=== PATIENT | female | born 1990 | race Caucasian/White ===

== ENCOUNTER 2019-07-16 12:25 | Emergency (ER) | payer BC ==
--- NOTE | 2019-07-16 13:12 | EDM.PDOC ---
ED HPI GENERAL MEDICAL PROBLEM - General Chief Complaint: Skin Complaint Stated Complaint: MASS;RT SIDE Time Seen by Provider: 07/16/19 13:01 Source of Information: Reports: Patient History Limitations: Reports: No Limitations - History of Present Illness INITIAL COMMENTS - FREE TEXT/NARRATIVE: HISTORY AND PHYSICAL: History of present illness: Patient is a 29 year old female who presents to the ED with c/o of breast pain and redness 6 weeks . Patient states she has been and has not had any complications post delivery. She noticed today she had right lateral breast pain, warmth, and discomfort with breast feeding. She states she tried applying head, taking OTC mediations, and feeding of that side but was concerned she may have mastitis. Today she had a low grade fever and felt she needed to be evaluated. OBGYN: Dr Welsh at [facility]. Review of systems: As per history of present illness and below otherwise all systems reviewed and negative. Past medical history: As per history of present illness and as reviewed below otherwise noncontributory. Surgical history: As per history of present illness and as reviewed below otherwise noncontributory. Social history: See social history for further information Family history: As per history of present illness and as reviewed below otherwise noncontributory. Physical exam: General: Well-developed and well-nourished 29-year-old female. Alert and oriented. Nontoxic appearing and in no acute distress. HEENT: Atraumatic, normocephalic, pupils equal and reactive bilaterally, negative for conjunctival pallor or scleral icterus, mucous membranes moist, trachea midline. No drooling or trismus noted. No meningeal signs. No hot potato voice noted. Lungs: Clear to auscultation, breath sounds equal bilaterally, chest nontender. Heart: S1S2, regular rate and rhythm without overt murmur Breast: The right breast at the 10 to 7 o'clock position is tender to palpation with some mild erythema. Not localized, diffuse and presentation. She has no dimpling or change in skin appearance. No nipple discharge. The skin is warm to touch. Abdomen: Soft, nondistended, nontender. Negative for masses or hepatosplenomegaly. Negative for costovertebral tenderness. Pelvis: Stable nontender. Skin: Intact, warm, dry. No lesions or rashes noted. Extremities: Atraumatic, moves all extremities per self without difficulty or deficits, negative for cords or calf pain. Neurovascular unremarkable. Neuro: Awake, alert, oriented. Cranial nerves II through XII unremarkable. Cerebellum unremarkable. Motor and sensory unremarkable throughout. Exam nonfocal. Notes: Patient states that she does have an appointment on Wednesday to see her BILINGUAL TEACHER AIDE as she does have an ultrasound scheduled. She states they're doing the ultrasound as she continued to have vaginal bleeding post delievery, and they were concerned of some retained products. She states that her bleeding has resolved and she was unsure whether or not to keep that appointment as she had not yet touched base with her BILINGUAL TEACHER AIDE. Her abdominal exam is unremarkable. She denies any recent fevers other than the last 24 hours with the breast concern. Encouraged her to keep her appointment as it would like her to have her breast reevaluated. She is agreeable to plan of care. Supportive care measures were reviewed and discussed. Voices understanding and is agreeable to plan of care. Denies any further questions or concerns at this time. Diagnostics: None Therapeutics: None Prescription: Keflex Impression: Mastitis, right Plan: 1. Continue to monitor the area for signs of improvement. Take the antibiotic as directed. Is safe in breast feeding, may cause minimal diarrhea in infant. 2. Continue alternating Tylenol and ibuprofen for pain and fever management. 3. Call Wednesday to inform Dr Welsh of ER visit and schedule re-evaluation. 4. Return to ED as needed and as discussed. Definitive disposition and diagnosis as appropriate pending reevaluation and review of above. right breast Pain Score (Numeric/FACES): 8 - Related Data Allergies Allergy/AdvReac Type Severity Reaction Status Date / Time No Known Allergies Allergy Verified 07/16/19 13:06 Home Meds: Home Meds Vit No.130/Iron/FA [ Tablet] 1 tab PO DAILY 02/03/19 [History] cephALEXin [Keflex] 500 mg PO Q8H 5 Days #15 cap 07/16/19 [Rx] Past Medical History - Past Health History Medical/Surgical History: Denies Medical/Surgical History BILINGUAL TEACHER AIDE History: Reports: Social & Family History - Caffeine Use Caffeine Use: Reports: Coffee ED ROS GENERAL - Review of Systems Review Of Systems: Comprehensive ROS is negative, except as noted in HPI. ED EXAM, SKIN/RASH Exam: See Below (See dictation) Course - Vital Signs Last Recorded V/S: Last Vital Signs Temp 99.3 F 07/16/19 13:05 Pulse 108 H 07/16/19 13:22 Resp 16 07/16/19 13:22 BP 109/76 07/16/19 13:22 Pulse Ox 98 07/16/19 13:22 Departure - Departure Time of Disposition: 13:11 Disposition: Home, Self-Care 01 Clinical Impression: Mastitis - Discharge Information Prescriptions: cephALEXin [Keflex] 500 mg PO Q8H 5 Days #15 cap Instructions: Mastitis, [id number] Referrals: PCP,None [Primary Care Provider] - Forms: ED Department Discharge Additional Instructions: The following information is given to patients seen in the emergency department who are being discharged to home. This information is to outline your options for follow-up care. We provide all patients seen in our emergency department with a follow-up referral. The need for follow-up, as well as the timing and circumstances, are variable depending upon the specifics of your emergency department visit. If you don't have a primary care physician on staff, we will provide you with a referral. We always advise you to contact your personal physician following an emergency department visit to inform them of the circumstance of the visit and for follow-up with them and/or the need for any referrals to a consulting specialist. The emergency department will also refer you to a specialist when appropriate. This referral assures that you have the opportunity for follow-up care with a specialist. All of these measure are taken in an effort to provide you with optimal care, which includes your follow-up. Under all circumstances we always encourage you to contact your private physician who remains a resource for coordinating your care. When calling for follow-up care, please make the office aware that this follow-up is from your recent emergency room visit. If for any reason you are refused follow-up, please contact the [facility] Emergency Department at and asked to speak to the emergency department charge nurse. [facility] [address] [place] [id number] [address] 1. Continue to monitor the area for signs of improvement. Take the antibiotic as directed. Is safe in breast feeding, may cause minimal diarrhea in infant. 2. Continue alternating Tylenol and ibuprofen for pain and fever management. 3. Call Wednesday to inform Dr Welsh of ER visit and schedule re-evaluation. 4. Return to ED as needed and as discussed.
== END 2019-07-16 13:39 | disposition home or self-care (01) ==
LOC: MW.ED 12:25
DX: O91.22 Nonpurulent mastitis associated with the puerperium (principal)
CPT/HCPCS: 99283

== ENCOUNTER 2020-06-27 10:29 | Day surgery (SDC) | payer BC ==
[~2020-06-27 10:29] MED LIST: Lactated Ringers 1,000 ML IV SCH; Sodium Chloride 0.9% 10 ML SDV IV PRN; Sodium Chloride 0.9% 10 ML Syringe FLUSH PRN; Sodium Chloride 0.9% 2.5 ML Syringe FLUSH PRN
[2020-06-27] MEDS ORDERED: Propofol 200 MG/20 ML SDV ONE ×2 (10:41→12:58)
[2020-06-27] MEDS ORDERED: Midazolam 1 MG/ML 2 ML SDV ONE (10:41)
--- NOTE | 2020-06-27 10:59 | PCM.PREANE ---
Preanesthetic Assessment - Anesthesia/Transfusion/Family Hx Anesthesia History: Prior Anesthesia Without Reaction Other Type of Anesthesia Reaction Comment: "my mother woke up during her surgery" "I have had no problems" Family History of Anesthesia Reaction: No Transfusion History: No Prior Transfusion(s) - Review of Systems General: No Symptoms Pulmonary: No Symptoms Cardiovascular: No Symptoms Neurological: No Symptoms Other: Reports: None - Physical Assessment NPO Status Date: 06/26/20 Height: 5 ft 6 in Weight: 57.153 kg ASA Class: 2 Mental Status: Alert & Oriented x3 Airway Class: Mallampati = 2 Dentition: Reports: Normal Dentition ROM/Head Extension: Full Lungs: Clear to Auscultation, Normal Respiratory Effort Cardiovascular: Regular Rate, Regular Rhythm - Allergies Allergies/Adverse Reactions: Allergies Allergy/AdvReac Type Severity Reaction Status Date / Time No Known Allergies Allergy Verified 06/21/20 08:22 - Blood Blood Available: No - Anesthesia Plan Pre-Op Medication Ordered: None - Acknowledgements Anesthesia Type Planned: General Anesthesia Pt an Appropriate Candidate for the Planned Anesthesia: Yes Alternatives and Risks of Anesthesia Discussed w Pt/Guardian: Yes Pt/Guardian Understands and Agrees with Anesthesia Plan: Yes Additional Comments: PMH: IBS PLAN: TIVA PreAnesthesia Questionnaire - Past Health History Medical/Surgical History: Denies Medical/Surgical History HEENT History: Reports: None Cardiovascular History: Reports: None Respiratory History: Reports: None Gastrointestinal History: Reports: Chronic Constipation Genitourinary History: Reports: None CPA TAX History: Reports: Musculoskeletal History: Reports: Fracture Neurological History: Reports: Migraines Psychiatric History: Reports: None Endocrine/Metabolic History: Reports: None Hematologic History: Reports: None Immunologic History: Reports: None Oncologic (Cancer) History: Reports: None Dermatologic History: Reports: None - Infectious Disease History Infectious Disease History: Reports: None - Past Surgical History Other Musculoskeletal Surgeries/Procedures:: arm sx - SUBSTANCE USE Tobacco Use Status *Q: Never Tobacco User - HOME MEDS Home Medications: Home Meds Vit No.130/Iron/Folic [ Tablet] 1 tab PO DAILY 02/03/19 [History] - CURRENT (IN HOUSE) MEDS Current Meds: Current Medications Lactated Ringer's (Ringers, Lactated) 1,000 mls @ 125 mls/hr IV ASDIRECTED CHEL Sodium Chloride (Saline Flush) 10 ml FLUSH ASDIRECTED PRN PRN Reason: Keep Vein Open Sodium Chloride (Saline Flush) 2.5 ml FLUSH ASDIRECTED PRN PRN Reason: Keep Vein Open Sodium Chloride (Saline Flush) 10 ml FLUSH ASDIRECTED PRN PRN Reason: Keep Vein Open Sodium Chloride (Saline Flush) 2.5 ml FLUSH ASDIRECTED PRN PRN Reason: Keep Vein Open Sodium Chloride (Normal Saline) 10 ml IV ASDIRECTED PRN PRN Reason: IV Use Discontinued Medications Midazolam HCl (Versed 1 Mg/Ml) Confirm Administered Dose 2 mg .ROUTE .STK-MED ONE Stop: 06/27/20 10:42 Propofol (Diprivan 20 Ml) Confirm Administered Dose 400 mg .ROUTE .STK-MED ONE Stop: 06/27/20 10:42
--- NOTE | 2020-06-27 13:17 | PCM.OPNOTE ---
- General Post-Op/Procedure Note Date of Surgery/Procedure: 06/27/20 Operative Procedure(s): Diagnostic colonoscopy Findings: Normal appearing colonoscopy Pre Op Diagnosis: Change in bowel habits Post-Op Diagnosis: IBS Anesthesia Technique: MAC Primary Surgeon: Christal Ardon Condition: Good
--- NOTE | 2020-06-27 13:47 | PCM.POSTAN ---
POST ANESTHESIA ASSESSMENT - MENTAL STATUS Mental Status: Alert, Oriented - VITAL SIGNS Vital Signs: Last Vital Signs Temp 36.6 C 06/27/20 11:03 Pulse 84 06/27/20 13:41 Resp 18 06/27/20 13:41 BP 100/52 L 06/27/20 13:41 Pulse Ox 98 06/27/20 13:41 - RESPIRATORY Respiratory Status: Respiratory Rate WNL, Airway Patent, O2 Saturation Stable - CARDIOVASCULAR CV Status: Pulse Rate WNL, Blood Pressure Stable - GASTROINTESTINAL GI Status: No Symptoms - POST OP HYDRATION Hydration Status: Adequate & Stable
--- NOTE | 2020-06-27 13:50 | OR ---
SURGEON: CHRISTAL ARDON MD DATE OF PROCEDURE: 06/27/2020 PREOPERATIVE DIAGNOSIS: Change in bowel habits. POSTOPERATIVE DIAGNOSIS: Irritable bowel syndrome. PROCEDURE PERFORMED: Diagnostic colonoscopy with biopsies. PRIMARY SURGEON: Christal Ardon MD ANESTHESIA: MAC. INSTRUMENT USED: Olympus colonoscope. EXTENT OF EXAM: To the cecum. PREPARATION: Good. LIMITATIONS: None. INDICATIONS FOR EXAMINATION: The patient is a 30-year-old female with a previous diagnosis of irritable bowel syndrome. However, recently she has had more dramatic changes in her bowel habits that are unusual for her. The decision was made to proceed with a diagnostic colonoscopy. The patient and I discussed the procedure, expected perioperative course, and the risks including bleeding, infection, or damage to surrounding structures including perforation. The patient verbalized understanding and wishes to proceed. PROCEDURE IN DETAIL: The patient was brought to the endoscopy suite and placed in the left lateral decubitus position. A time-out was completed verifying the patient's name, age, date of , allergies, and procedure to be performed. Monitored anesthesia care was induced and continuous oxygen was provided via nasal cannula throughout the procedure. After adequate sedation was achieved, a digital rectal exam was performed. This exam was within normal limits. A well-lubricated colonoscope was inserted in the rectum and advanced under direct visualization to the level of the cecum. The cecum was identified by both visual and anatomic landmarks. A photograph was taken of the cecal cap. However, I was unable to retroflex the scope within the cecum due to looping of the scope more proximally. The scope was then fully withdrawn while examining the color, texture, anatomy, and integrity of the mucosa from the cecum to the anal canal. The findings were consistent with normal colonic mucosa. Biopsies were taken in the ascending colon, the transverse colon, the sigmoid colon, and the rectum and sent for histologic review. The scope was brought into the rectum and retroflexed to allow visualization of the anal canal opening. This appeared normal and a photograph was taken. The scope was then straightened out and fully withdrawn. The cecum to anus time was 6 minutes. The patient tolerated the procedure well and was transferred to the PACU in stable condition. ENDOSCOPIC DIAGNOSIS: Irritable bowel syndrome. RECOMMENDATIONS: Follow up in clinic in 2 weeks to discuss biopsy results and the next steps and management. TRUDI / AMALIA /[id number]
--- NOTE | 2020-06-27 13:57 | PCM48HPAN ---
Post Anesthesia Note - EVALUATION WITHIN 48HRS OF ANESTHETIC Vital Signs in Normal Range: Yes Patient Participated in Evaluation: Yes Respiratory Function Stable: Yes Airway Patent: Yes Cardiovascular Function Stable: Yes Hydration Status Stable: Yes Pain Control Satisfactory: Yes Nausea and Vomiting Control Satisfactory: Yes Mental Status Recovered: Yes Vital Signs: Last Vital Signs Temp 36.6 C 06/27/20 11:03 Pulse 84 06/27/20 13:41 Resp 18 06/27/20 13:41 BP 100/52 L 06/27/20 13:41 Pulse Ox 98 06/27/20 13:41 - COMMENTS/OBSERVATIONS Free Text/Narrative:: Sitting up eating and denies complaints. States she wants to go home soon.
== END 2020-06-27 14:15 | disposition home or self-care (01) ==
LOC: MW.SDS 10:29
PROVIDERS: ATTEND Surgery
DX: K58.9 Irritable bowel syndrome, unspecified (principal); G43.909 Migraine, unspecified, not intractable, without status migrainosus; Z79.899 Other long term (current) drug therapy; Z98.890 Other specified postprocedural states; Z90.89 Acquired absence of other organs
CPT/HCPCS: 45380; 81025; J2250; J2704; J7120

== ENCOUNTER 2020-07-11 06:31 | Day surgery (SDC) | payer BC ==
[~2020-07-11 06:31] MED LIST changes: +ceFAZolin 1 GM in Premix Bag 1 BAG IV ONE
[2020-07-11] MEDS ORDERED: Propofol 200 MG/20 ML SDV ONE (07:00)
[2020-07-11] MEDS ORDERED: Glycopyrrolate 0.2 MG/ML SDV ONE (07:01)
[2020-07-11] MEDS ORDERED: fentaNYL 250 MCG/5 ML SDV ONE (07:01)
[2020-07-11] MEDS ORDERED: Midazolam 1 MG/ML 2 ML SDV ONE (07:01)
[2020-07-11] MEDS ORDERED: Lidocaine 2% 5 ML SDV ONE (07:01)
[2020-07-11] MEDS ORDERED: Rocuronium Bromide 50 MG/5 ML Syringe ONE (07:01)
[2020-07-11] MEDS ORDERED: Ketorolac 30 MG/ML SDV ONE (07:01)
[2020-07-11] MEDS ORDERED: Ondansetron 4 MG/2 ML SDV ONE (07:01)
--- NOTE | 2020-07-11 07:01 | PCM.PREANE ---
Preanesthetic Assessment - Anesthesia/Transfusion/Family Hx Anesthesia History: Prior Anesthesia Without Reaction Other Type of Anesthesia Reaction Comment: "my mother woke up during her surgery" "I have had no problems" Family History of Anesthesia Reaction: No Transfusion History: No Prior Transfusion(s) Intubation History: Unknown - Review of Systems General: No Symptoms Pulmonary: No Symptoms Cardiovascular: No Symptoms Gastrointestinal: No Symptoms Neurological: No Symptoms Other: Reports: None - Physical Assessment Vital Signs: Last Vital Signs Temp 36.4 C 07/11/20 06:45 Pulse 71 07/11/20 06:45 Resp 16 07/11/20 06:45 BP 104/63 07/11/20 06:45 Pulse Ox 99 07/11/20 06:45 Height: 5 ft 6 in Weight: 57.153 kg ASA Class: 1 Mental Status: Alert & Oriented x3 Airway Class: Mallampati = 1 Dentition: Reports: Normal Dentition Thyro-Mental Finger Breadths: 3 Mouth Opening Finger Breadths: 3 ROM/Head Extension: Full Lungs: Clear to Auscultation, Normal Respiratory Effort Cardiovascular: Regular Rate, Regular Rhythm - Allergies Allergies/Adverse Reactions: Allergies Allergy/AdvReac Type Severity Reaction Status Date / Time No Known Allergies Allergy Verified 07/05/20 09:59 - Blood Blood Available: No - Anesthesia Plan Pre-Op Medication Ordered: None - Acknowledgements Anesthesia Type Planned: General Anesthesia Pt an Appropriate Candidate for the Planned Anesthesia: Yes Alternatives and Risks of Anesthesia Discussed w Pt/Guardian: Yes Pt/Guardian Understands and Agrees with Anesthesia Plan: Yes PreAnesthesia Questionnaire - Past Health History Medical/Surgical History: Denies Medical/Surgical History HEENT History: Reports: None Cardiovascular History: Reports: None Respiratory History: Reports: None Gastrointestinal History: Reports: Chronic Constipation, Irritable Bowel Syndrome Genitourinary History: Reports: None 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: Musculoskeletal History: Reports: Fracture Other Musculoskeletal History: hx fx arm Neurological History: Reports: Migraines Psychiatric History: Reports: None Endocrine/Metabolic History: Reports: None Hematologic History: Reports: None Immunologic History: Reports: None Oncologic (Cancer) History: Reports: None Dermatologic History: Reports: None - Infectious Disease History Infectious Disease History: Reports: None - Past Surgical History Head Surgeries/Procedures: Reports: None HEENT Surgical History: Reports: Tonsillectomy Cardiovascular Surgical History: Reports: None Respiratory Surgical History: Reports: None GI Surgical History: Reports: Appendectomy Female Surgical History: Reports: None Endocrine Surgical History: Reports: None Neurological Surgical History: Reports: None Musculoskeletal Surgical History: Reports: Other (See Below) Other Musculoskeletal Surgeries/Procedures:: arm sx Oncologic Surgical History: Reports: None Dermatological Surgical History: Reports: None - SUBSTANCE USE Tobacco Use Status *Q: Never Tobacco User - HOME MEDS Home Medications: Home Meds Vit No.130/Iron/Folic [ Tablet] 1 tab PO DAILY 02/03/19 [History] - CURRENT (IN HOUSE) MEDS Current Meds: Current Medications Lactated Ringer's (Ringers, Lactated) 1,000 mls @ 125 mls/hr IV ASDIRECTED CHEL Last Admin: 07/11/20 06:50 Dose: 125 mls/hr Documented by: Sodium Chloride (Saline Flush) 10 ml FLUSH ASDIRECTED PRN PRN Reason: Keep Vein Open Sodium Chloride (Saline Flush) 2.5 ml FLUSH ASDIRECTED PRN PRN Reason: Keep Vein Open Sodium Chloride (Normal Saline) 10 ml IV ASDIRECTED PRN PRN Reason: IV Use Discontinued Medications Cefazolin Sodium/Dextrose 1 gm (/ Premix) 50 mls @ 100 mls/hr IV ONETIME ONE Stop: 07/10/20 13:02
[2020-07-11] MEDS ORDERED: Bupivacaine 0.5% 30 ML SDV ONE (07:15)
[2020-07-11] MEDS ORDERED: Acetaminophen 1,000 MG in Premix Bag 1 BAG IV PRN (07:24)
[2020-07-11] MEDS ORDERED: fentaNYL 100 MCG/2 ML SDV IVPUSH PRN (07:24)
[2020-07-11] MEDS ORDERED: Sodium Chloride 0.9% 20 ML ONE (07:31)
[2020-07-11] MEDS ORDERED: ceFAZolin 1 GM Vial ONE (07:31)
[2020-07-11] MEDS ORDERED: Octyl 2-Cyanoacrylate 1 Tube ONE (08:45)
--- NOTE | 2020-07-11 09:10 | PCM.OPNOTE ---
- General Post-Op/Procedure Note Date of Surgery/Procedure: 07/11/20 Operative Procedure(s): Umbilical hernia repair, exploratory laparoscopy Findings: 2mm umbilical hernia, reducible, endometriosis Pre Op Diagnosis: Abdominal pain, umbilical hernia Post-Op Diagnosis: Umbilical hernia, endometriosis Anesthesia Technique: General ET Tube Primary Surgeon: Christal Ardon Fluid Replacement, Intraop: 800 EBL in mLs: 5 Condition: Good
--- NOTE | 2020-07-11 09:14 | PCM.OPNOTE ---
- General Post-Op/Procedure Note Date of Surgery/Procedure: 07/11/20 Operative Procedure(s): Diagnostic laparoscopy Findings: Endometriosis in posterior cul-de-sac. Normal-appearing uterus, ovaries, tubes. Pre Op Diagnosis: Pelvic pain Post-Op Diagnosis: Endometriosis. Pelvic pain Anesthesia Technique: General ET Tube Primary Surgeon: Christal Welsh Pathology: None Fluid Replacement, Intraop: 800 EBL in mLs: 5 Complications: None Condition: Good Free Text/Narrative:: Intake & Output 07/10/20 07/11/20 07/11/20 22:59 06:59 14:59 Intake Total 800 Balance 800
--- NOTE | 2020-07-11 09:41 | PCM.POSTAN ---
POST ANESTHESIA ASSESSMENT - MENTAL STATUS Mental Status: Alert, Oriented - VITAL SIGNS Vital Signs: Last Vital Signs Temp 36.8 C 07/11/20 09:09 Pulse 71 07/11/20 09:25 Resp 14 07/11/20 09:25 BP 99/59 L 07/11/20 09:25 Pulse Ox 98 07/11/20 09:25 - RESPIRATORY Respiratory Status: Respiratory Rate WNL, Airway Patent, O2 Saturation Stable - CARDIOVASCULAR CV Status: Pulse Rate WNL, Blood Pressure Stable - GASTROINTESTINAL GI Status: No Symptoms - PAIN Pain Score: 0 - POST OP HYDRATION Hydration Status: Adequate & Stable - OBSERVATIONS Free Text/Narrative:: No anesthesia problems
--- NOTE | 2020-07-11 10:35 | PCM48HPAN ---
Post Anesthesia Note - EVALUATION WITHIN 48HRS OF ANESTHETIC Vital Signs in Normal Range: Yes Patient Participated in Evaluation: Yes Respiratory Function Stable: Yes Airway Patent: Yes Cardiovascular Function Stable: Yes Hydration Status Stable: Yes Pain Control Satisfactory: Yes Nausea and Vomiting Control Satisfactory: Yes Mental Status Recovered: Yes Vital Signs: Last Vital Signs Temp 36 C L 07/11/20 09:42 Pulse 66 07/11/20 10:20 Resp 14 07/11/20 10:20 BP 99/57 L 07/11/20 10:20 Pulse Ox 98 07/11/20 10:20 - COMMENTS/OBSERVATIONS Free Text/Narrative:: No anesthesia problems
--- NOTE | 2020-07-11 12:21 | OR ---
SURGEON: Christal Welsh MD DATE OF PROCEDURE: 07/11/2020 PREOPERATIVE DIAGNOSIS: A 30-year-old with pelvic pain. POSTOPERATIVE DIAGNOSES: 1. A 30-year-old with pelvic pain. 2. Endometriosis. PRIMARY SURGEON: Christal Welsh MD CONTROL PANEL BUILDER: Christal Ardon MD PROCEDURE: Diagnostic laparoscopy. ESTIMATED BLOOD LOSS: 5 mL. IV FLUIDS: 800 mL. FINDINGS: Endometriosis in the posterior cul-de-sac. Normal-appearing uterus, ovaries, and tubes. DESCRIPTION OF PROCEDURE: The patient with chronic pelvic pain, constipation, and umbilical hernia. Plan was with Dr. Ardon to repair the umbilical hernia and the patient requested a diagnostic laparoscopy to evaluate for her pelvic pain at the same time. The patient was taken to the operating room where general anesthesia was obtained. She was placed in a dorsal lithotomy position with legs in Yellofin stirrups. She was prepared and draped in a normal sterile fashion. A Graves speculum was inserted into the vagina. The cervix was grasped with an Allis clamp. The cervix was dilated to a size 4 with Hegar dilators. A Stirplate.io uterine manipulator was placed. The Allis clamp and speculum were removed. The surgeon's gloves were changed. Please see Dr. Ardon's dictation for entry of the abdomen and hernia sac. A 5 mm laparoscopic port was placed through the hernia sac. The abdomen was insufflated with carbon dioxide to a pressure of 15 mmHg. A diagnostic laparoscopy was performed. A survey of the pelvis showed suspected endometriosis in the posterior cul-de-sac. The ovaries and tubes appeared normal. No biopsies were performed. The laparoscope was removed and the carbon dioxide removed from the abdomen. Please see Dr. Ardon's dictation for closure of the hernia sac and skin. The patient was awakened and taken to the recovery room in stable condition. [id number] / MODL /[id number]
--- NOTE | 2020-07-12 17:14 | OR ---
SURGEON: CHRISTAL ARDON MD DATE OF PROCEDURE: 07/11/2020 PREOPERATIVE DIAGNOSIS: Umbilical hernia. POSTOPERATIVE DIAGNOSIS: Umbilical hernia. PROCEDURES PERFORMED: Umbilical hernia repair, exploratory laparoscopy. PRIMARY SURGEON: Christal Ardon MD SECONDARY SURGEON: Christal Welsh MD ANESTHESIA: General endotracheal anesthesia. FLUIDS: 800 mL of crystalloid. ESTIMATED BLOOD LOSS: 5 mL. FINDINGS: 2 mm umbilical hernia fascial defect. Findings from the exploratory laparoscopy will be found in Dr. Welsh's note. See her note for further details. COMPLICATIONS: None. INDICATIONS: The patient is a 30-year-old female who presented to my office with a symptomatic umbilical hernia in the period. The patient was also concerned about ovarian cyst and the possibility of endometriosis. 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 The patient and I discussed the aspects of the umbilical hernia repair. Given how small her umbilical hernia is, I feel this will likely only need to be repaired with sutures and not mesh. We discussed the expected perioperative course; the need for weight restrictions postoperatively; and the risks including bleeding, infection, or damage to surrounding structures. She verbalized understanding and wishes to proceed. PROCEDURE IN DETAIL: The patient was brought into the OR and placed on the OR table in supine position. A time-out was completed verifying the patient's name, age, date of , allergies, and procedure to be performed. General endotracheal anesthesia was induced. The abdomen was prepped and draped in usual standard fashion. At the beginning of the case, Dr. Welsh placed the uterine manipulator. She then scrubbed into the case and assisted me with my portion of the procedure. I anesthetized the supraumbilical fold with 0.5% Marcaine plain. A 15 blade was used to make an incision along the supraumbilical fold. Using electrocautery, I then dissected down to the level of subcutaneous fat. I then lifted up the periumbilical skin and dissected down to the fascia. Using a hemostat, I then dissected around the umbilical stalk. I identified a 2 mm defect on the right side of the umbilical stalk. This had a small wispy hernia sac associated with it. With minimal dissection, I was able to take down umbilical hernia sac and entered the abdomen. The fascial defect measured 2 mm in size. This was too small to place the 5 mm trocar through, so using electrocautery I enlarged the defect enough to accept the 5 mm trocar. A 5 mm trocar was placed inside the abdomen and the abdomen insufflated. A 5 mm 30- degree scope was inserted in the abdomen, and Dr. Welsh began the exploratory laparoscopy portion of the case. Please see her operative note for further details. At the end of the laparoscopic portion of the case, the 5 mm trocar was removed. I then grasped the edges of the fascia with hemostats and elevated them. I closed the fascial defect with interrupted 0 Ethibond sutures. A Valsalva maneuver was performed and the repair appeared to be intact. I then closed the wound using interrupted layers of 3-0 Vicryl suture in the subcutaneous fat layer. I then closed the skin with a running 4-0 Monocryl stitch. Dermabond and sterile dressings were applied. The patient tolerated the procedure well and was extubated and transferred to the PACU in stable condition. All counts were complete and correct at the end of the case. TRUDI HOLLAND /[id number]
== END 2020-07-11 10:42 | disposition home or self-care (01) ==
LOC: MW.SDS 06:31
PROVIDERS: ATTEND Surgery
DX: K42.9 Umbilical hernia without obstruction or gangrene (principal); N80.9 Endometriosis, unspecified; Z98.890 Other specified postprocedural states; Z79.899 Other long term (current) drug therapy
CPT/HCPCS: 36415; 49320; 49585; 84703; 85025; A9270; J0690; J1885; J2001; J2250; J2405; J2704; J3010; J3490; J7120; 00840